=== PATIENT | male | born 1950 | race Caucasian/White ===

== ENCOUNTER → 2019-03-26 09:24 | Outpatient (CLI) | payer MEDICARE, OTHER, SELFPAY ==
--- NOTE | 2019-03-26 09:29 | CT_ITS ---
PROCEDURE: CT ABDOMEN W CON CLINICAL HISTORY: EPIGASTRIC PAIN Epigastric pain, abdominal pain, COMPARISON: No exams were available for comparison TECHNIQUE: 75 mL Optiray 350 Axial images obtained with sagittal and coronal reformats. All CT scans at the facility use one or more dose reduction, viz: automated exposure control, ma/kV adjustment per patient size (including targeted exams where dose is matched to indication, i.e. head), or iterative reconstruction technique. FINDINGS: Lung bases are clear. There are several hepatic lesions the largest in the right hepatic lobe measuring up to 16 mm. These may represent a patent cyst and could be confirmed with ultrasound if clinically warranted. The gallbladder, spleen, adrenal glands, and pancreas have an unremarkable appearance. No renal or ureteral calculi are evident. There are bilateral parapelvic renal cysts. No evidence of appendicitis. There is a mild amount of retained colonic feces throughout the colon. No intestinal obstruction or free air. IMPRESSION: 1. Multiple hypodense liver lesions which may be related to cysts and may be confirmed with ultrasound. 2. Moderate amount of retained colonic feces Dictated by: Jovan Flood MD 03/26/2019 16:20 Electronically signed by Jovan Flood MD in [place] 03/27/2019 07:11
== END ==
PROVIDERS: PCP Family Medicine; Visit Provider Internal Medicine Gastroenterology
DX: R10.13 Epigastric pain (principal)
CPT/HCPCS: 74160; Q9967